=== PATIENT | male | born 1965 | race Two or more races ===

== ENCOUNTER 2020-11-04 13:19 | Outpatient (CLI) | payer BC, SELFPAY ==
--- NOTE | 2020-11-04 13:28 | XR_ITS ---
WS: [id number] PROCEDURE: XR chest 2V* [id number] CLINICAL INFORMATION: COVID 19, ASTHMATIC BRONCHITIS, DYSPNEA COMPARISON: None. FINDINGS: Heart: Normal cardiac silhouette. Lungs: Moderate to advanced chronic emphysematous changes. Patchy left greater than right perihilar a nd lower lobe infiltrates infiltrates. Recommend correlation for pneumonia. No focal consolidation or pleural fluid. Bones: Normal visualized bony structures. XR/XR chest 2V* [id number] IMPRESSION: 1. Patchy left greater than right perihilar and lower lobe infiltrates. 2. No focal consolidation or pleural fluid.
== END 2020-11-04 13:20 | disposition home or self-care (01) ==
LOC: RADWPI 13:26
PROVIDERS: PCP Nurse Practitioner Family; Visit Provider Nurse Practitioner Family
DX: U07.1 COVID-19 (principal); J45.909 Unspecified asthma, uncomplicated
CPT/HCPCS: 71046

== ENCOUNTER 2021-10-03 10:48 | Outpatient (CLI) | payer BC, SELFPAY ==
--- NOTE | 2021-10-03 11:18 | XR_ITS ---
WS: [id number] PROCEDURE: XR chest 2V* [id number] CLINICAL INFORMATION: COSTOCHONDRITIS COMPARISON: November 04, 2020 FINDINGS: Heart: Normal cardiac silhouette. Lungs: Lungs are clear. No consolidation or pleural fluid. No acute pulmonary infiltrates. Bones: Normal visualized bony structures. XR/XR chest 2V* [id number] IMPRESSION: No acute chest findings.
== END 2021-10-03 10:49 | disposition home or self-care (01) ==
PROVIDERS: PCP Nurse Practitioner Family; Visit Provider Nurse Practitioner Family
DX: M94.0 Chondrocostal junction syndrome [Tietze] (principal)
CPT/HCPCS: 71046

== ENCOUNTER 2023-03-28 06:30 | Observation (INO) | payer BC, SELFPAY ==
[2023-03-28] VITALS (22 sets, daily range): BP systolic 115–165; BP diastolic 66–101; PULSE 82–98; RESP 1–27; TEMP 36.6–36.7; O2SAT 93–97; BMI 28.0
--- NOTE | 2023-03-28 06:37 | XR_ITS ---
WS: [id number] Exam: XR chest 1V portable [id number] Date/Time of Exam: 03/28/2023 6:46 AM Reason For Exam: cp Comparison 10/03/2021. The lungs are fully inflated and clear. Mild plaque atelectasis in the left base. Normal cardiomedias tinal silhouette and regional bony elements. Monitoring leads superimpose the chest. XR/XR chest 1V portable [id number] IMPRESSION: 1. No acute cardiopulmonary finding.
--- NOTE | 2023-03-28 06:44 | ECG_ITS ---
[facility] Test Date: 2023-03-28 Pat Name: Prabhu Abdullahi Department: Room: Gender: Male Developer Automatic: : 1965 Requested By: Catrina Roche Order Number: [id number] Shea MD: Brown Mallory M.D. Measurements Intervals [place] Rate: 83 P: 177 NC: 171 QRS: 176 QRSD: 90 T: 164 QT: 319 QTc: 377 Interpretive Statements SINUS RHYTHM ARM LEADS REVERSED [INVERTED P AND QRS IN I] No previous ECG available for comparison Electronically Signed On 03-28-2023 17:37:02 CDT by Brown Mallory M.D. [id number]
[2023-03-28 07:02] LABS: Basophils # 0.1 10^3/uL (0.0-0.1); Basophils % 0.5 %; Eosinophils # 0.1 10^3/uL (0.0-0.8); Eosinophils % 0.5 %; Hematocrit 42.5 % (42.0-52.0); Hemoglobin 13.4 g/dL (11.7-16.6); Lymphocytes # 1.3 10^3/uL (0.8-4.8); Lymphocytes % 8.7 %; Mean Corpuscular HGB Conc 31.5 g/dL (30.0-36.0); Mean Corpuscular Hemoglobin 27.1 pg (28.0-34.0); Mean Platelet Volume 9.2 fL (7.4-10.4); Monocytes # 0.9 10^3/uL (0.2-0.9); Monocytes % 6.1 %; Neutrophils # 12.18 10^3/uL (1.8-7.7); Neutrophils % 83.9 %; Nucleated Red Blood Cells % 0 %; Platelet Count 340 10^3/cmm (130-400); Red Blood Count 4.94 10^6/uL (4.1-5.3); Red Cell Distribution Width 14.3 % (12.1-15.1); White Blood Count 14.5 10^3/uL (4.0-10.0)
--- NOTE | 2023-03-28 07:03 | ED_ITS ---
HPI - Chest Pain General: Chief Complaint: Chest Pain Stated Complaint: Chest Pressure, pain in Neck and left arm Time Seen by Provider: 03/28/23 06:37 Source: patient Mode of arrival: ambulatory Limitations: no limitations History of Present Illness: 57-year-old male states that he been on a train overnight working states that about 130 started having some left neck and arm pain he states started to radiate into his chest its been a pressure type pain in his chest since 130 states that couple hours later he started having some diaphoresis and feeling short of breath and lightheaded he states that they stopped [place] where he got the train started feel improved he states he feels much improved currently he still has some slight pressure type pain in the center of his chest he rates a 2 out of 10 currently. Associated symptoms: Reports dyspnea and nausea; Deny abdominal pain, fever(s) or vomiting Review of Systems Const: Denies: fever(s), chills, body aches or change in appetite Eyes: Denies: blurry vision or eye discomfort ENMT: Denies: throat pain or dental pain Card: Reports: chest pain Resp: Reports: dyspnea GI: Reports: nausea; Denies: abdominal pain, vomiting or diarrhea Musc: Denies: neck pain or back pain Skin/Breast: Denies: rash Neuro: Denies: headache(s) PFSH ED PFSH: Medical History (Updated 03/28/23 @ 08:26 by Catrina Roche MD) No pertinent past medical history Social History (Updated 03/28/23 @ 07:06 by Catrina Roche MD) Substance/Drug Use: never Physical Exam Const: COMMON NORMALS: patient oriented x3 HENMT: COMMON NORMALS: normocephalic and atraumatic HEAD & SCALP: normocephalic and atraumatic Eye: COMMON NORMALS: conjunctivae normal CONJUNCTIVA: Yes conjunctivae normal Neck/C-Spine: COMMON NORMALS: full ROM and supple Chest: COMMONS NORMALS: normal inspection of the chest and normal palpation of entire chest wall Resp: COMMON NORMALS: normal respiratory effort, No retractions, No use of accessory muscles and clear to auscultation bilaterally AUSCULTATION: clear to auscultation bilaterally Cardio: COMMON NORMALS: regular rate, regular rhythm and No murmurs present (Cardio) RATE: regular rate RHYTHM: regular rhythm GI: COMMON NORMALS: Normal to inspection, nondistended, normoactive bowel sounds present, Soft to palpation, non-tender and no masses PALPATION: Yes Soft to palpation Extremity: COMMON NORMALS: normal to inspection and full ROM Neuro: COMMON NORMALS: patient oriented x3, moves all extremities and no focal motor deficits Psych: COMMON NORMALS: mental status grossly normal, Normal thought process present and cooperative THOUGHT PROCESS: Normal thought process present Skin: COMMON NORMALS: no rashes or lesions noted and no wounds GENERAL SKIN EXAM: no rashes or lesions noted Course Vital Signs: Vital signs: Vital Signs Temperature 97.9 F 03/28/23 06:35 Pulse Rate 89 03/28/23 06:35 Respiratory Rate 16 03/28/23 06:35 Blood Pressure 165/94 03/28/23 06:54 Pulse Oximetry 97 03/28/23 06:56 Oxygen Delivery Me thod Room Air 03/28/23 06:56 MDM - Chest Pain Medical Decision Making Patient presents with chest pain started to have some diaphoresis and worsening pain here repeat EKGs were done at 816 819 1 at 816 started to show some upsloping look like repole but was quite changed from his initial repeat of the date 19 it is worse up to the peoplesoft hrms developer after both EKGs I did call a STEMI alert after the second EKG at 819. Patient is going to [place] Supervisor given Plavix and heparin. Medical Records I reviewed the patient's medical records. Lab Data I reviewed the patient's lab results. 03/28/23 06:51 03/28/23 06:51 Radiology Impressions Chest X-Ray 03/28/23 06:37 IMPRESSION: 1. No acute cardiopulmonary finding. Laboratory Results WBC 14.5 10^3/uL (4.0-10.0) H 03/28/23 06:51 RBC 4.94 10^6/uL (4.1-5.3) 03/28/23 06:51 Hgb 13.4 g/dL (11.7-16.6) 03/28/23 06:51 Hct 42.5 % (42.0-52.0) 03/28/23 06:51 MCV 86.0 fl (80-94) 03/28/23 06:51 MCH 27.1 pg (28.0-34.0) L 03/28/23 06:51 MCHC 31.5 g/dL (30.0-36.0) 03/28/23 06:51 RDW 14.3 % (12.1-15.1) 03/28/23 06:51 Plt Count 340 10^3/cmm (130-400) 03/28/23 06:51 MPV 9.2 fL (7.4-10.4) 03/28/23 06:51 Neut % (Auto) 83.9 % 03/28/23 06:51 Lymph % (Auto) 8.7 % 03/28/23 06:51 [place] % (Auto) 6.1 % 03/28/23 06:51 Eos % (Auto) 0.5 % 03/28/23 06:51 Baso % (Auto) 0.5 % 03/28/23 06:51 Neut # (Auto) 12.18 10^3/uL (1.8-7.7) H 03/28/23 06:51 Lymph # (Auto) 1.3 10^3/uL (0.8-4.8) 03/28/23 06:51 [place] # (Auto) 0.9 10^3/uL (0.2-0.9) 03/28/23 06:51 Eos # (Auto) 0.1 10^3/uL (0.0-0.8) 03/28/23 06:51 Baso # (Auto) 0.1 10^3/uL (0.0-0.1) 03/28/23 06:51 Nucleated RBC % (auto) 0 % 03/28/23 06:51 Nucleated RBCs # 0.0 /100WBC 03/28/23 06:51 D-Dimer 0.42 ug/mIFEU (0-0.59) 03/28/23 06:51 Sodium 135 mmol/L (136-145) L 03/28/23 06:51 Potassium 4.0 mmol/L (3.5-5.1) 03/28/23 06:51 Chloride 98 mmol/L (98-107) 03/28/23 06:51 Carbon Dioxide 26 mmol/L (22-29) 03/28/23 06:51 Anion Gap 15.0 (5-19) 03/28/23 06:51 BUN 10 mg/dL (6-20) 03/28/23 06:51 Creatinine 0.9 mg/dL (0.7-1.2) 03/28/23 06:51 GFR Calculation 87.0 mL/min (90-130) L 03/28/23 06:51 Glucose 111 mg/dL (65-115) 03/28/23 06:51 Calculated Osmolality 280 mOsm/kg (285-295) L 03/28/23 06:51 Calcium 9.8 mg/dL (8.5-10.5) 03/28/23 06:51 Total Bilirubin 0.4 mg/dL (0.15-1.2) 03/28/23 06:51 AST 14 U/L (0-40) 03/28/23 06:51 ALT 18 U/L (0-41) 03/28/23 06:51 Alkaline Phosphatase 110 U/L (40-130) 03/28/23 06:51 Troponin T Baseline 7 ng/L (0-15) 03/28/23 06:51 Total Protein 7.5 g/dL (6.6-8.7) 03/28/23 06:51 Albumin 4.2 g/dL (3.5-5.2) 03/28/23 06:51 Globulin 3.3 g/dL (1.3-4.6) 03/28/23 06:51 EKG Data EKG 1: I personally reviewed and interpreted this EKG as follows: EKG interpretation date: 03/28/23 EKG interpretation time: 06:44 Interpretation: nsr hr [address] or t wave abnormalities qrs 90 qtc 359 Critical Care Time Critical Care Time: Critical Care Time: Yes Total Critical Care Time: 40 Attestation: The high probability of a clinically significant, sudden or life threatening deterioration of the patient's cv system(s) required my full and direct attention, intervention and personal management. The critical care time is as shown. This time is in addition to time spent performing any reported procedures but includes the following: [x] Data and vital sign review and interpretation [x] Patient assessment, examination and intervention [x] Documentation [x] Medication orders and management Discharge Plan Discharge Patient Disposition: Admitted As Inpatient Clinical Impression: ST elevation myocardial infarction (STEMI) Condition: Stable Coding Level of Care Code ED Strategic Planning Specialist for Elizabeth Marino
--- NOTE | 2023-03-28 07:05 | PC.NURSE ---
PT PLACED ON CONTINUOUS NIBP, SPO2, AND CM
[2023-03-28 07:16] LABS: D Dimer 0.42 ug/mIFEU (0-0.59)
[2023-03-28 07:19] LABS: Alanine Aminotransferase 18 U/L (0-41); Albumin Level 4.2 g/dL (3.5-5.2); Alkaline Phosphatase 110 U/L (40-130); Aspartate Amino Transferase 14 U/L (0-40); Blood Urea Nitrogen 10 mg/dL (6-20); Calcium 9.8 mg/dL (8.5-10.5); Carbon Dioxide 26 mmol/L (22-29); Chloride 98 mmol/L (98-107); Globulin 3.3 g/dL (1.3-4.6); Glucose 111 mg/dL (65-115); Osmolality Calculated 280 mOsm/kg (285-295); Sodium 135 mmol/L (136-145); Total Bilirubin 0.4 mg/dL (0.15-1.2); Total Protein 7.5 g/dL (6.6-8.7)
[2023-03-28 07:20] LABS: Troponin(5th) Baseline 7 ng/L (0-15)
[2023-03-28] MEDS: aspirin 81 mg Chew Tablet 324 MG PO (07:54)
--- NOTE | 2023-03-28 08:26 | XACV_ITS ---
Exam Room: ED.ROOM12 Ht: 175 cm Wt: 86 kg BSA: 2.07 m2 Gender: Male : 1965 Any Known Allergies: Penicillins Exam Priority: Routine Procedure(s): Procedure Description: Diagnostic procedure Procedure Description: Left Heart Catheterization Procedure Description: Left ventriculography Procedure Description: Coronary Angiography Diagnostic Cath Status: Emergency Diagnostic Findings * INDICATION: 57 year old male with no significant prior history of CAD history presented to hospital with chest discomfort since last night and it is on and off.It is severe. EKG shows ST elevations that are more diffuse however are dynamic. Patient also has diaphoresis associated with it.Initial troponin is normal. STEMI alert was called as EKG changes are dynamic.. * No significant disease noted in the Left Main, Left Anterior Descending, Right, or Circumflex coronary arteries. * Coronary angiography shows right dominance. PCI Status: Emergency Conclusions 1. No significant disease noted in the Left Main, Left Anterior Descending, Right, or Circumflex coronary arteries. 2. Symptoms likely secondary to coronary vasospasms. 3. Normal left ventricular systolic function. Ejection fraction of 55%. Recommendations * Patient's symptoms are likely secondary to coronary vasospasm. We will start calcium channel piedad. * We will have work-up for alternative reasons for chest discomfort. Interventional RX Recommendation: medical therapy and/or counseling Diagnostic RX Recommendation: medical therapy and/or counseling Anticoagulation: Heparin Ventriculography Ejection Fraction: 55.0 % Pressures Phase:Rest AO : 130 / 97 ( 113 ) @ 9:47:00 AM 120 / 92 ( 107 ) @ 9:54:00 AM 133 / 82 ( 106 ) @ 10:04:00 AM 115 / 83 ( 100 ) @ 10:05:00 AM / ( 9 ) @ 10:10:00 AM 137 / 77 ( 102 ) @ 10:13:00 AM 134 / 76 ( 100 ) @ 10:14:00 AM LV : 142 / -5 / 23 @ 10:12:00 AM 141 / 5 / 27 @ 10:13:00 AM 142 / 5 / 27 @ 10:13:00 AM Valves Phase:DefaultPhase AV : 5.0 @ 9:28:35 AM 5.0 @ 9:28:35 AM AV Mean Gradient: 17.0 @ 9:28:35 AM 17.0 @ 9:28:35 AM Clinical Evaluation EBL: 5mL-10mL Procedural Details Pre-Procedure Time Out. Identified patient by full name and date of as verbalized by the patient/guarantor. Does the consent match the physician's order: N/A Emergent. Accurate & Complete Informed Consent: N/A Emergent. Inpatient/Outpatient History & Physical on Chart: N/A Emergent. If H&P is completed, is and addenduem needed: N/A Emergent; If yes, is the addendum complete: N/A Emergent. Visualize and Verify Site with Patient/Guarantor: N/A. Relevant Radiology Images available: N/A Emergent. Pre-op teaching completed and patient verbalized understanding. The risks, benefits, and alternatives of sedation and/or procedure were discussed by physician. The patient agrees to continue. Procedure started. Current diagnosis: STEMI. PERRLA. Strong, equal hand industry consultant bilaterally. Lungs clear x 5 lobes. IV Site on Arrival: 20 gauge in the right anticubital. IV Site on Arrival: 20 gauge in the left anticubital. IV Fluids: 0.9% NaCl at KVO. 0 mL infused prior to lab support service tech. Pre Procedural Pulses: bilateral radial was 2+. Pre Procedural Pulses: bilateral dorsalis pedis was 2+. Oxygen started at 2liters/min via nasal canula. right groin was prepped with chloroprep then draped in the usual sterile fashion. right radial was prepped with chloroprep then draped in the usual sterile fashion. Physician notified. Baseline sample Acquired. HR: 98 BPM. Physician arrived. Physician scrubbed in. Immediate Pre-Procedure Time Out. Correct Patient: N/A Emergent; Correct Procedure: N/A Emergent; Correct Site: N/A Emergent; Correct Patient Position: N/A Emergent; Correct Supplies: N/A Emergent; Dried Flammable Prep: N/A Emergent; Blood Products Available: N/A Emergent;. Lidocaine 1% infiltrated to the right radial. Arterial access obtained. A 6 bangladeshi TIG catheter in over wire. Catheter out. A 5 bangladeshi JR4 catheter in over wire. Multiple views taken of right coronary artery. Catheter removed over the exchange wire. A 5 bangladeshi JL3.5 catheter in over wire. Multiple views taken of left coronary artery. 6 bangladeshi XB 3.5 guide catheter was inserted over the wire. Family updated. Guide catheter out. Lidocaine 1% infiltrated to the right groin. Arterial access obtained with micropuncture set. 6 bangladeshi XB 3.5 guide catheter was inserted over the wire. Multiple views taken of left coronary artery. Guide catheter out. A 5 bangladeshi JR4 catheter in over wire. Multiple views taken of right coronary artery. Catheter out. A 5 bangladeshi Angled Pig catheter in over wire. EDP Sample taken: LV 142/-6,23; HR: 90 BPM; SpO2: 98%. LV gram performed in JURADO @ 10 mL/second for a total of 30 mL. EDP Sample taken: LV 141/5,27; HR: 90 BPM; SpO2: 95%. Pullback taken: LV 142/5,27; AO 137/77(102); Mean: 17mmHg, Peak to Peak: 5mmHg, SEP: 10sec/min; HR: 90 BPM; SpO2: 99%. A Right femoral angiogram was performed to determine safe placement of closure device. Post Procedure: Pulses reassessed and unchanged. PERRLA. Strong, equal hand industry consultant bilaterally. No VTE prophylaxis required. A Suture was successful obtaining hemostatsis at the Right Femoral artery insertion site. A TR Band was successful obtaining hemostatsis at the Right Radial artery insertion site. ACT drawn. Results 192 seconds. Therapeutic limits - pre-heparin administration 90-150 seconds and monitoring heparin during a vascular procedure >250 seconds. Post-op diagnosis: non obstructive CAD. Complications: none. Estimated blood loss: 5mL-10mL. Responsiveness - Normal response to verbal stimuli; alert and oriented, PERRLA. Airway - Unaffected, no intervention required; spontaneous ventilation. Circulation: W/N/L, pulses unchanged. Nausea/Vomiting: No. Medication's Wasted: Nitro = 49.8 mL. Medication's Wasted: Heparin = 4000 units. Total IV fluids: 45 mL. Procedure completed. Patient transferred by bed to ICU. Vital chart was stopped. Access Site Site: Right Radial artery Sheath Size: 6 Fr Hemostasis Method: TR Band Hemostasis Success: Successful Site: Right Femoral artery Sheath Size: 6 Fr Hemostasis Method: Suture Hemostasis Success: Successful Procedure Medications Start: 8:44 AM Stop: 8:44 AM Medication: Versed Amount: 1 mg Route: I.V. Start: 8:44 AM Stop: 8:44 AM Medication: Fentanyl Amount: 50 mcg Route: I.V. Start: 8:44 AM Stop: 8:44 AM Medication: Versed Amount: 1 mg Route: I.V. Start: 8:45 AM Stop: 8:45 AM Medication: Nitrogylcerin Amount: 200 mcg Route: I.A. Start: 8:52 AM Stop: 8:52 AM Medication: Versed Amount: 1 mg Route: I.V. Start: 8:57 AM Stop: 8:57 AM Medication: Fentanyl Amount: 50 mcg Route: I.V. Start: 9:03 AM Stop: 9:03 AM Medication: Versed Amount: 1 mg Route: I.V. I, the attending physician, have reviewed and verified all procedure medications. Yes, all medications given per verbal order Report Signatures Finalized by Brown Mallory MD on 04/07/2023 11:46 AM
[2023-03-28] MEDS: heparin 5,000 unit/mL INJ 1 mL 4000 UNIT IVP (08:29)
[2023-03-28] MEDS: clopidogrel 300 mg Tablet 600 MG PO (08:29)
[2023-03-28] MEDS: sodium chloride 0.9% 1,000 ML 999 ML IV (08:36)
--- NOTE | 2023-03-28 08:36 | PC.NURSE ---
PT BECAME COOL AND CLAMMY. PT STATED HE WAS NAUSEAS AND DID NOT FEEL RIGHT. SECOND EKG OBTAINED AND GIVEN TO PHYSICIAN. STEMI ALERT CALLED.
--- NOTE | 2023-03-28 09:45 | PM.HP ---
Providers/Chief Complaint Admitting Physician: Brown Malolry M.D Primary Care Provider: Tasha Rowe APN Chief Complaint: Chest Pressure, pain in Neck and left arm History of Present Illness Prabhu Abdullahi is a 57 year old male with no significant prior history of CAD history presented to hospital with chest discomfort since last night and it is on and off.It is severe. EKG shows ST elevations that are more diffuse however are dynamic. Patient also has diaphoresis associated with it.Initial troponin is normal. STEMI alert was called as EKG changes are dynamic. Review of Systems General: Reports: 10 or more systems reviewed and unremarkable except in HPI and below Const: Reports: chills and diaphoresis; Denies: fever(s) Card: Reports: chest pain Resp: Denies: dyspnea GI: Reports: nausea; Denies: abdominal pain, hematemesis, hematochezia or melena Medications/Allergies Home Medications Medication Instructions Recorded Confirmed Last Taken Type aspirin 81 mg tablet,delayed 81 mg PO DAILY 03/28/23 03/28/23 Unknown History release cholecalciferol (vitamin D3) 25 25 mcg PO DAILY 03/28/23 03/28/23 Unknown History mcg (1,000 unit) capsule (Vitamin D3) esomeprazole magnesium 20 mg 20 mg PO DAILY 03/28/23 03/28/23 Unknown History capsule,delayed release (Nexium) loratadine 10 mg capsule 10 mg PO DAILY 03/28/23 03/28/23 Unknown History multivitamin 1 tab PO DAILY 03/28/23 03/28/23 Unknown History Allergies Allergy/AdvReac Type Severity Reaction Status Date / Time Penicillins Allergy Unknown Verified 03/28/23 06:41 PFSH Acute PFSH: Medical History GERD (gastroesophageal reflux disease) No pertinent past medical history Family History Other CAD (coronary artery disease) Social History Smoking and tobacco status: never smoked Alcohol intake: never Substance/Drug Use: never Vitals/I&O/Wt Last Vital Signs Temp 97.9 F 03/28/23 06:35 Pulse 82 03/28/23 08:00 Resp 20 H 03/28/23 08:00 BP 121/74 03/28/23 08:00 Pulse Ox 95 03/28/23 08:00 O2 Del Method Room Air 03/28/23 07:30 Weight last 48 hrs Weight 190 lb Physical Exam Narrative: GENERAL: Patient is alert, awake and oriented x3. [] NECK: No jugular vein distension. [] HEENT: No cyanosis. No icterus. No pallor. [] HEART: Regular S1 and S2. No murmur, rub or gallop. [] LUNGS: Clear to auscultate bilaterally. [] CENTRAL NERVOUS SYSTEM: Grossly nonfocal. [] EXTREMITIES: Lower extremities with 1+ edema bilaterally. Data 03/28/23 06:51 03/28/23 06:51 A&P Assessment and plan (1) Chest pain: Plan Patient has diffuse ST elevations. Chest pain is severe and typical. Associated with diaphoresis. Denies pleuritic component.We will proceed with coronary angiogram with possible percutaneous coronary intervention. We will order echocardiogram. If coronary angiogram does not reveal significant disease, will consult medicine team for alternative diagnosis evaluation. Attestations Medical Necessity Statement*: Care expected to cross 2 midnights. Coding Level of Care Code Acute Code for [facility] Diagnoses Chest pain R07.9
--- NOTE | 2023-03-28 09:50 | USCV_ITS ---
Prabhu Abdullahi Age: 57 Gender: M : 1965 Exam Date: 03/28/2023 10:16 Ordering Phys: Brown Mallory M.D ([email or web address]) Technologist: Morris Flynn Exam Location: [facility] [place] Indication: chest pain post cath BP: 131 / 84 HR: 92 Rhythm: Sinus Technical Quality: Adequate MEASUREMENTS (Male / Female) Normal Values 2D ECHO LV Diastolic Diameter PLAX 3.9 cm 4.2 - 5.9 / 3.9 - 5.3 cm LV Systolic Diameter PLAX 2.2 cm IVS Diastolic Thickness 1.4 cm 0.6 - 1.0 / 0.6 - 0.9 cm IVS Systolic Thickness 1.3 cm LVPW Diastolic Thickness 1.3 cm 0.6 - 1.0 / 0.6 - 0.9 cm LVPW Systolic Thickness 1.3 cm LVOT Diameter 2.0 cm LV Ejection Fraction 2D Teich 74.3 % LV Ejection Fraction MOD 2C 68.8 % LV Ejection Fraction 2C AL 68.3 % LA Diameter 3.6 cm IVC Diameter 2.0 cm M-MODE Aortic Annulus Diameter 3.7 cm LA Ao Ratio MM 1.0 MV E Point Septal Separation 0.5 cm DOPPLER AV Peak Velocity 139.0 cm/s LVOT Peak Velocity 102.0 cm/s AV Area Cont Eq vti 2.1 cm squared AV Area Cont Eq pk 2.3 cm squared MV Area PHT 5.0 cm squared Mitral E to A Ratio 1.2 MV E' Velocity 53.5 cm/s Mitral E to MV E' Ratio 8.5 Mitral E to LV E' Lateral Ratio 7.4 Mitral E to LV E' Septal Ratio 10.0 TR Peak Velocity 150.3 cm/s TR Peak Gradient 9.0 mmHg TV Peak E Velocity 93.0 cm/s Right Atrial Pressure 3.0 mmHg Pulmonary Artery Systolic Pressu 12.0 mmHg RV Acceleration Time 0.1 s FINDINGS Left Ventricle Left ventricle is normal size. LV systolic function is normal with EF of 60 to 65%. No regional wall motion abnormalities are seen. Right Ventricle Normal in size and function Right Atrium Normal in size Left Atrium Normal in size Mitral Valve Structurally normal mitral valve. Mild mitral regurgitation. Aortic Valve Aortic valve is thickened. No significant stenosis or regurgitation. Tricuspid Valve Mild tricuspid regurgitation. Insufficient TR jet to calculate RVSP Pulmonic Valve Not well visualized Pericardium Normal Aorta Normal in size IVC Appears to be normal CONCLUSIONS LV systolic function is normal with EF of 60 to 65% Mild mitral regurgitation Mild tricuspid regurgitation No comparison studies are available Brown Mallory MD (Electronically Signed) Final Date: 28 March 2023 18:53 S
[2023-03-28] MEDS: amlodipine 5 mg Tablet 2.5 MG PO (10:15)
[2023-03-28 12:25] LABS: Partial Thromboplastin Time 31.1 SECONDS (23.9-36.7)
--- NOTE | 2023-03-28 13:13 | ECG_ITS ---
[facility] Test Date: 2023-03-28 Pat Name: Prabhu Abdullahi Department: Room: ICU07 Gender: Male Airport Representative: : 1965 Requested By: Catrina Roche Order Number: [id number] Shea MD: Brown Mallory M.D. Measurements Intervals [place] Rate: 92 P: 51 MS: 155 QRS: 38 QRSD: 95 T: 49 QT: 316 QTc: 391 Interpretive Statements SINUS RHYTHM ST ELEVATION, CONSIDER INFERIOR INJURY [MARKED ST ELEVATION W/O NORMALLY INFLECTED T-WAVE IN II/aVF] ACUTE TX Compared to ECG 03/28/2023 06:44:54 ST (T wave) deviation now present Myocardial infarct finding now present Electronically Signed On 03-28-2023 17:37:53 CDT by Brown Mallory M.D. [id number]
--- NOTE | 2023-03-28 13:18 | P.CONIM_ITS ---
Providers/Reason For Consult Consulting Physician/Specialty*: David Michele MD Reason for Consult*: Chest pain, diaphoresis Attending Physician: Brown Mallory M.D Primary Care Provider: Tasha Rowe APN History of Present Illness History of Present Illness Prabhu Abdullahi is a 57 year old male with history of GERD who presented to the ED with complaints of chest pressure starting in very early AM hours while at work. This seemed to wax and waing. It was associated with severe diaphoresis, radiation of pain into neck and shoulder. Some significant nausea. No recent illness, blood in stool, black or tarry stools. Does take meds for reflux. No recent ill contacts or illness. Feels like discomfort worsens some with taking a breath, coughing. Has had some diaphoresis at night in the last several months. STEMI was called in ED, underwent angiogram and no significant disease was noted. Following procedure he is better, but still having some episodes of diap horesis and discomfort. Review of Systems General: Reports: 10 or more systems reviewed and unremarkable except in HPI and below Const: Reports: chills and diaphoresis; Denies: fever(s) Card: Reports: chest pain Resp: Denies: dyspnea GI: Reports: nausea; Denies: abdominal pain, hematemesis, hematochezia or melena Medications/Allergies Home Medications Medication Instructions Recorded Confirmed Last Taken Type aspirin 81 mg tablet,delayed 81 mg PO DAILY 03/28/23 03/28/23 Unknown History release cholecalciferol (vitamin D3) 25 25 mcg PO DAILY 03/28/23 03/28/23 Unknown History mcg (1,000 unit) capsule (Vitamin D3) esomeprazole magnesium 20 mg 20 mg PO DAILY 03/28/23 03/28/23 Unknown History capsule,delayed release (Nexium) loratadine 10 mg capsule 10 mg PO DAILY 03/28/23 03/28/23 Unknown History multivitamin 1 tab PO DAILY 03/28/23 03/28/23 Unknown History Allergies Allergy/AdvReac Type Severity Reaction Status Date / Time Penicillins Allergy Unknown Verified 03/28/23 06:41 Current Medications Generic Name Dose Route Start Last Admin Trade Name Freq PRN Reason Stop Dose Admin Amlodipine Besylate 2.5 mg 03/28/23 09:55 03/28/23 10:15 Amlodipine 5 Mg Tablet PO 2.5 mg DAILY JAZ Administration Sodium Chloride 1,000 mls @ 100 mls/hr 03/28/23 10:00 03/28/23 10:15 Sodium Chloride 0.9% IV Not Given .Q10H JAZ PFSH Acute PFSH: Medical History (Updated 03/28/23 @ 13:23 by David Michele MD) GERD (gastroesophageal reflux disease) No pertinent past medical history Family History (Updated 03/28/23 @ 13:22 by David Michele MD) Other CAD (coronary artery disease) Social History (Updated 03/28/23 @ 13:22 by David Michele MD) Smoking and tobacco status: never smoked Alcohol intake: never Substance/Drug Use: never Vitals/I&O/Wt Last Vital Signs Temp 97.9 F 03/28/23 06:35 Pulse 95 03/28/23 10:15 Resp 19 H 03/28/23 10:15 BP 137/101 03/28/23 10:15 Pulse Ox 94 03/28/23 10:15 O2 Del Method Room Air 03/28/23 10:01 03/27/23 03/28/23 03/28/23 22:59 06:59 14:59 Intake Total 1000 / 1000 Balance 1000 / 1000 Weight last 48 hrs Weight 86.183 kg Physical Exam Narrative: General exam is a white male, no distress HEENT: Atraumatic and normocephalic. Pupils equally round. Neck is supple no lymphadenopathy thyromegaly Cardiovascular regular rate and rhythm without murmur, no S3 or S4 Lungs clear no wheezing or crackles Abdomen is soft nontender with positive bowel sounds. No obvious organomegaly exams deferred Extremities no cyanosis, edema, cap refill brisk Skin no rash Neuro no focal deficits Data 03/28/23 06:51 03/28/23 06:51 Other Labs: EKGs reviewed. Last one demonstrates normal sinus rhythm, normal axis, upsloping ST elevation inferiorly and V4 through 6 by my read D-dimer is normal Calcium 9.8 LFTs normal TSH ordered and pending Albumin 4.2 Chest x-ray no obvious infiltrate by my read I have ordered a urinalysis. A&P Assessment and plan (1) Chest pain: Patient presented with recurrence earning history for myocardial infarction. EKG was abnormal and he was taken directly to angiogram, where no flow-limiting disease was noted. He is still having significant discomfort, and periods of diaphoresis. Echocardiogram has been done but results pending Secondary to his persistent diaphoresis, that is intermittent as well as chest discomfort which she describes to have a pleuritic quality we will go ahead and perform CT chest, with contrast. We will also check a TSH, COVID PCR which will also encompass a viral panel He does have a history of reflux, and cannot completely rule out esophageal spasm as a reason for his discomfort. Placed on Protonix twice daily. Check urinalysis Plan Thank you for this consultation Consult Attestations Medical Necessity Statement: As per primary Diagnoses Chest pain R07.9 Time Spent (min) 53
--- NOTE | 2023-03-28 13:25 | CT_ITS ---
WS: [id number] CT CHEST ANGIOGRAPHY WITH REFORMATS HISTORY: chest pain TECHNIQUE: Contiguous axial images are obtained through the chest during arterial injection of intrav enous contrast. Images are reconstructed to evaluate the pulmonary arteries. MIP imaging also reviewe d. All CT scans at [facility] use at least one of these dose optimization techniques: automat ed exposure control; mA and/or kV adjustment per patient size (includes targeted exams where dose is matched to clinical indication); or iterative reconstruction. CONTRAST: Omnipaque 350; 100 mL IV. DLP: 365.15 mGy.cm COMPARISON: None available. Limited opacification of the pulmonary arteries due to timing of injection bolus. Centrally no pulmon emiliano embolism. Limited opacification beyond the lobar branches. No occlusive central emboli identified . Normal-sized thoracic aorta with mild atherosclerotic plaque. Motion artifact throughout the lungs. Lung volumes are decreased due to expiration. Compressive areas of atelectasis at the lung bases. 14 mm RIGHT hilar lymph node. Blush-like area of enhancement along the greater curvature the stomach may be a tiny active ulceration with bleeding. Differential would include medicinal fragment within t he stomach. Soft tissue mass in the LEFT upper abdomen is most likely associated with the kidney. The normal emperatriz form shape is no longer evident. This soft tissue mass measures 7.6 x 9.0 cm. Spleen appears slightly enlarged. Neither the spleen of the kidney are completely included on this examination. Mild fullnes s of the pancreatic tail. Visualized upper pole of the RIGHT kidney is negative. Normal RIGHT adrenal gland. Thickening of the LEFT adrenal gland. No osseous abnormalities. IMPRESSION: 1. No pulmonary embolism centrally. 2. Low lung volumes and poor inspiration with dependent changes at the lung bases. 3. Soft tissue mass visualized in the LEFT upper abdomen. Incomplete visualization of this mass harvinder uring 7.6 x 9.0 cm. Favor this is probably an abnormal LEFT kidney. Differential includes renal cell neoplasm and lymphoma. 4. Incompletely visualized spleen. Spleen is probably slightly enlarged. Additional fullness at the pancreatic tail and mild thickening of the LEFT adrenal gland. 5. Recommendation: CT abdomen and pelvis with IV and oral contrast is recommended. As patient recent ly had IV contrast with CT angiogram recommend waiting 24 hours. Notified David Michele MD at 03/28/2023 3:22 PM.
[2023-03-28] MEDS: pantoprazole DR 40 mg Tablet PO ×2 (14:13→17:54)
[2023-03-28 14:14] LABS: Magnesium 2.2 mg/dL (1.7-2.3); Thyroid Stimulating Hormone 2.05 uIU/mL (0.27-4.20)
[2023-03-28] MEDS: iohexol 350 mg/mL 500 mL Btl (per mL) IV (15:02)
[2023-03-28 17:35] LABS: Protein Urine 1+ (Negative); Specific Gravity, Urine 1.005 (1.005-1.030); Urine Color Yellow (Yellow); pH Urine 7 (5-7)
[2023-03-28 17:36] LABS: Bacteria Urine TR /hpf; Bilirubin Urine Neg (Negative); Blood Urine 3+ (Negative); Glucose Urine UA Norm (Normal); Ketones Urine Negative (Negative); Leukocyte Esterase Urine Negative (Negative); Nitrate Urine Negative (Negative); RBC Urine >100 /hpf (0-2); Urobilinogen Urine Norm (Negative)
[2023-03-28 17:38] LABS: Add Urine Culture? Yes
[2023-03-28 19:00] LABS: Adenovirus Not Detected (NOT DETECT); Chlamydia Pneumoniae Not Detected (NOT DETECT); Coronavirus 229E,HKU1,NL63,OC4 Not Detected (NOT DETECT); Human Metapneumovirus Not Detected (NOT DETECT); Human Rhinovirus/Enterovirus Not Detected (NOT DETECT); Influenza A Not Detected (NOT DETECT); Influenza A H1 Not Detected (NOT DETECT); Influenza A H1-2009 Not Detected (NOT DETECT); Influenza A H3 Not Detected (NOT DETECT); Influenza B Not Detected (NOT DETECT); Mycoplasma Pneumoniae Not Detected (NOT DETECT); Parainfluenza Virus Type 1 Not Detected (NOT DETECT); Parainfluenza Virus Type 2 Not Detected (NOT DETECT); Parainfluenza Virus Type 3 Not Detected (NOT DETECT); Parainfluenza Virus Type 4 Not Detected (NOT DETECT); Respiratory Syncytial Virus A Not Detected (NOT DETECT); Respiratory Syncytial Virus B Not Detected (NOT DETECT); SARS-COV-2 Not Detected (NOT DETECT)
[2023-03-28] MEDS: sodium chloride 0.9% 1,000 ML 125 ML IV (19:29)
[2023-03-28 19:36] LABS: Squamous Epithelial Cell Urine 0-4 /hpf (0-5)
[2023-03-29] VITALS (9 sets, daily range): BP systolic 121–139; BP diastolic 68–79; PULSE 80–95; RESP 1–30; O2SAT 93–97
[2023-03-29] MEDS: sodium chloride 0.9% 1,000 ML 125 ML IV (03:09)
[2023-03-29 04:13] LABS: Basophils % 0.2 %; Eosinophils # 0.1 10^3/uL (0.0-0.8); Eosinophils % 0.7 %; Hematocrit 37.9 % (42.0-52.0); Hemoglobin 12.1 g/dL (11.7-16.6); Lymphocytes # 1.4 10^3/uL (0.8-4.8); Lymphocytes % 13.7 %; Mean Corpuscular HGB Conc 31.9 g/dL (30.0-36.0); Mean Corpuscular Hemoglobin 27.9 pg (28.0-34.0); Mean Corpuscular Volume 87.5 fl (80-94); Mean Platelet Volume 9.3 fL (7.4-10.4); Monocytes # 0.8 10^3/uL (0.2-0.9); Monocytes % 8.1 %; Neutrophils # 7.57 10^3/uL (1.8-7.7); Neutrophils % 77.1 %; Nucleated Red Blood Cells % 0 %; Platelet Count 282 10^3/cmm (130-400); Red Blood Count 4.33 10^6/uL (4.1-5.3); Red Cell Distribution Width 14.8 % (12.1-15.1); White Blood Count 9.8 10^3/uL (4.0-10.0)
[2023-03-29 04:36] LABS: Anion Gap 14.2 (5-19); Blood Urea Nitrogen 9 mg/dL (6-20); Calcium 8.6 mg/dL (8.5-10.5); Carbon Dioxide 25 mmol/L (22-29); Chloride 102 mmol/L (98-107); Glucose 121 mg/dL (65-115); Osmolality Calculated 284 mOsm/kg (285-295); Potassium 4.2 mmol/L (3.5-5.1); Sodium 137 mmol/L (136-145)
--- NOTE | 2023-03-29 07:23 | CTR_ITS ---
PROCEDURE INFORMATION: Exam: CT Abdomen And Pelvis With Contrast Exam date and time: 03/29/2023 8:33 AM Age: 57 years old Clinical indication: Abnormal findings; Mass, lump, or swelling; Kidney, left; Additional info: Mass seen on cta TECHNIQUE: Imaging protocol: Computed tomography of the abdomen and pelvis with contrast. 223image(s) are provided. Radiation optimization: All CT scans at this facility use at least one of these dose optimization techniques: automated exposure control; mA and/or kV adjustment per patient size (includes targeted exams where dose is matched to clinical indication); or iterative reconstruction. Contrast material: OMNI 350; Contrast volume: 100 ml; Contrast route: INTRAVENOUS (IV); Other technique: Axial images are available with sagittal and coronal reconstruction views. Automated dose exposure control is utilized. REPORTING DATA: Count of CT and Cardiac NM exams in prior 12 months: This patient has received [address] and 0 known cardiac nuclear medicine studies in the 12 months prior to the current study. COMPARISON: CT angio chest PE protcl [id number] 03/28/2023 2:[address] abdomen is currently available. RADIATION DOSE METRICS: Total DLP (mGy-cm): 890.52 FINDINGS: Lungs: Lung base findings correlate with the CT chest description. Liver: There appears to be some slight hepatic steatosis as well as some subcentimeter cystic appearance of the left liver lobe similar overall. Gallbladder and bile ducts: There is increased density of the gallbladder which could be seen with some sludge as well as vicarious excretion of contrast along with some small stone filling defects of the dependent portion. Pancreas: No pancreatic ductal dilatation or stranding is currently appreciated. Spleen: There is a small splenule present. Adrenal glands: There appears to be some adrenal involvement on the left medially. Kidneys and ureters: No radiopaque obstructive renal calculus or hydronephrosis is appreciated with relatively homogeneous enhancement appearance on the right. There is some subcentimeter fluid dense cystic as well as possible angiomyolipoma type averaging. There is however complex and lobulated mass of the left renal superior pole which measures approximately 9.1 x 8.5 x 8.4 cm. Stomach and bowel: Some aspects of the colon are undistended. This may also be peristaltic related.There is abundant stool present limiting mucosal detail evaluation.The bowel gas pattern appears nonobstructive. There is a small sliding-type hiatal hernia demonstrated with slight gastroesophageal fold thickening. Appendix: No evidence of appendicitis. Intraperitoneal space: No free air or free fluid collections are appreciated. Vasculature: There are some atherosclerotic vascular calcifications with no aortic saccular aneurysmal dilatation appreciated. Branch vessel enhancement is overall appreciated including at the expected renal arterial and venous levels centrally. There are enlarged lymph nodes present appearing most pronounced at the left para-aortic space measuring approximately 4.9 x 2.1 cm. Lymph nodes: There also borderline lymph nodes along the perivascular space including the groin levels right more so than left as well as stranding. Urinary bladder: The bladder is incompletely fluid filled for evaluation which may exagerate the wall thickness. This can also be seen with post inflammation sequela. Reproductive: There appears to be some lobulated prostate hypertrophy. Bones/joints: Osseous alignment is maintained.No displaced fracture or dislocation is appreciated. There is some mild spurring and disc space narrowing of the lumbar spine including at the lumbosacral junction. This contributes to some neural foraminal narrowing. Soft tissues: No radiopaque foreign body or subcutaneous emphysema is appreciated. Other findings: There is some motion artifact present. No other significant interval changes are appreciated. CT/CT abdomen pelvis w con* [id number] IMPRESSION: There is heterogeneous and lobulated left renal mass with the appearance consistent with renal cell neoplasm. There are associated enlarged lymph nodes including of the left para-aortic space and likely involvement of the adrenal gland on the left. There is overall renal arterial and venous contrast luminal enhancement demonstrated. Some small-vessel proximal renal level involvement could also present in this fashion as there is some central extension as well as of the renal pelvis calyceal junction.
[2023-03-29] MEDS: pantoprazole DR 40 mg Tablet PO (08:02)
[2023-03-29] MEDS: aspirin 81 mg EC Tablet PO (08:02)
[2023-03-29] MEDS: amlodipine 5 mg Tablet 2.5 MG PO (08:02)
[2023-03-29] MEDS: multivitamin therapeutic Tablet 1 TAB PO (08:02)
[2023-03-29] MEDS: iohexol 350 mg/mL 500 mL Btl (per mL) IV (08:38)
[2023-03-29] MEDS: iohexol 350 mg/mL 500 mL Btl (per mL) PO (08:39)
--- NOTE | 2023-03-29 08:46 | P.PN_ITS ---
Subjective Subjective: Prabhu reports he is feeling okay today. No recurrent chest discomfort. No flushing episodes. Eager for evaluation of his abdominal mass on the left. He has been up and around. Medications: Reviewed: Yes Vitals/I&O/Wt Last Vital Signs Temp 98.0 F 03/28/23 16:18 Pulse 80 03/29/23 06:00 Resp 18 03/29/23 06:00 BP 126/68 03/29/23 06:00 Pulse Ox 97 03/29/23 06:00 O2 Del Method Room Air 03/28/23 10:01 03/28/23 03/29/23 03/29/23 22:59 06:59 14:59 Intake Total 240 / 1240 958.333 / 2198.333 Balance 240 / 1240 958.333 / 2198.333 Weight last 48 hrs Weight 86.183 kg Physical Exam Narrative: General exam no distress, telemetry overnight no concerns Neck is supple no lymphadenopathy thyromegaly Cardiovascular regular rate and rhythm without murmur, no S3 or S4 Lungs clear no wheezing or crackles Abdomen is soft nontender with positive bowel sounds. No obvious organomegaly Extremities no cyanosis, edema, cap refill brisk Data 03/29/23 03:41 03/29/23 03:41 Other Labs: Urine demonstrated microscopic hematuria A&P Assessment and plan (1) Chest pain: Patient presented with recurrence earning history for myocardial infarction. EKG was abnormal and he was taken directly to angiogram, where no flow-limiting disease was noted. His episodes of chest discomfort and diaphoresis did not recur overnight Echocardiogram shows preserved EF CTA of chest done after angiogram secondary to some persistent discomfort dem onstrated a left abdominal mass. CT abdomen and pelvis planned today. TSH normal, COVID PCR negative He does have a history of reflux, and cannot completely rule out esophageal spasm as a reason for his discomfort. Placed on Protonix twice daily. He reports this is helping with his reflux (2) Abdominal mass: Mass noted left abdomen, concerned this might be renal origin. Microscopic hematuria noted on urinalysis CT abdomen pelvis with contrast today. After this is done he could potentially be discharged, with close follow-up regarding mass with appropriate specialist if no other concerning findings are noted on CT Plan Thank you for this consultation Attestations Medical Necessity Statement*: As per primary Diagnoses Chest pain R07.9 Abdominal mass R19.00 Time Spent (min) 21
--- NOTE | 2023-03-29 10:27 | P.DS_ITS ---
Discharge Providers Date of Admission: 03/28/23 09:30 Date of Discharge: March 29, 2023 Attending Provider at Admission: Brown Mallory M.D Attending Provider at Discharge: Brown Mallory M.D Consults: Dr Michele Primary Care Provider: Tasha Rowe APN Diagnoses at Discharge Discharge Diagnosis (1) Chest pain: Status: Inactive (2) Abdominal mass: Status: Acute Reason for Visit Reason for Visit: Chest Pressure, pain in Neck and left arm Brief History: 57-year-old man with no significant prior cardiac history presented to hospital with chest pain and night sweats. EKG showed dynamic ST-T wave changes with transient ST elevations. Given his presentation decision was made to emergently take him to the cardiac [employer]. Hospital Course Hospital Course Coronary angiogram did not reveal significant stenosis. LV systolic function was normal on echo. Medicine team was consulted for further evaluation of his symptoms. CTA of the chest was obtained that was unremarkable however did it showed incidental finding of left upper abdominal soft tissue mass which was of significant size. We then obtained a CT scan of her abdomen and pelvis with contrast. It showed a heterogeneous and lobulated left renal mass consistent in appearance with renal cell carcinoma. Enlarged periaortic lymph nodes were also seen. Possible involvement of left adrenal gland was also noted. His chest pain was consistent with coronary vasospasms. He was put on calcium channel piedad. Medicine team arranged follow up with urology in [place]. Patient was discharged home in a stable condition. Physical Exam Narrative: GENERAL: Patient is alert, awake and oriented x3. [] NECK: No jugular vein distension. [] HEENT: No cyanosis. No icterus. No pallor. [] HEART: Regular S1 and S2. No murmur, rub or gallop. [] LUNGS: Clear to auscultate bilaterally. [] CENTRAL NERVOUS SYSTEM: Grossly nonfocal. [] EXTREMITIES: Lower extremities with no edema bilaterally. Discharge Data Studies Completed and Pending Completed Studies During Hospitalization Category Date Time Status CT abdomen pelvis w con* [id number] Routine Cat Scan 03/29/23 07:23 Completed CTA chest [CT angio chest PE protcl [id number]] Routine Cat Scan 03/28/23 13:25 Completed XR chest 1V portable [id number] Stat Exams 03/28/23 06:37 Completed CV. 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 No acute cardiopulmonary finding. Abdomen/Pelvis CT 03/29/23 07:23 IMPRESSION: There is heterogeneous and lobulated left renal mass with the appearance consistent with renal cell neoplasm. There are associated enlarged lymph nodes including of the left para-aortic space and likely involvement of the adrenal gland on the left. There is overall renal arterial and venous contrast luminal enhancement demonstrated. Some small-vessel proximal renal level involvement could also present in this fashion as there is some central extension as well as of the renal pelvis calyceal junction. Laboratory Results WBC 9.8 10^3/uL (4.0-10.0) 03/29/23 03:41 RBC 4.33 10^6/uL (4.1-5.3) 03/29/23 03:41 Hgb 12.1 g/dL (11.7-16.6) 03/29/23 03:41 Hct 37.9 % (42.0-52.0) L 03/29/23 03:41 MCV 87.5 fl (80-94) 03/29/23 03:41 MCH 27.9 pg (28.0-34.0) L 03/29/23 03:41 MCHC 31.9 g/dL (30.0-36.0) 03/29/23 03:41 RDW 14.8 % (12.1-15.1) 03/29/23 03:41 Plt Count 282 10^3/cmm (130-400) 03/29/23 03:41 MPV 9.3 fL (7.4-10.4) 03/29/23 03:41 Neut % (Auto) 77.1 % 03/29/23 03:41 Lymph % (Auto) 13.7 % 03/29/23 03:41 [place] % (Auto) 8.1 % 03/29/23 03:41 Eos % (Auto) 0.7 % 03/29/23 03:41 Baso % (Auto) 0.2 % 03/29/23 03:41 Neut # (Auto) 7.57 10^3/uL (1.8-7.7) 03/29/23 03:41 Lymph # (Auto) 1.4 10^3/uL (0.8-4.8) 03/29/23 03:41 [place] # (Auto) 0.8 10^3/uL (0.2-0.9) 03/29/23 03:41 Eos # (Auto) 0.1 10^3/uL (0.0-0.8) 03/29/23 03:41 Baso # (Auto) 0.0 10^3/uL (0.0-0.1) 03/29/23 03:41 Nucleated RBC % (auto) 0 % 03/29/23 03:41 Nucleated RBCs # 0.0 /100WBC 03/29/23 03:41 APTT 31.1 SECONDS (23.9-36.7) 03/28/23 11:55 D-Dimer 0.42 ug/mIFEU (0-0.59) 03/28/23 06:51 Sodium 137 mmol/L (136-145) 03/29/23 03:41 Potassium 4.2 mmol/L (3.5-5.1) 03/29/23 03:41 Chloride 102 mmol/L (98-107) 03/29/23 03:41 Carbon Dioxide 25 mmol/L (22-29) 03/29/23 03:41 Anion Gap 14.2 (5-19) 03/29/23 03:41 BUN 9 mg/dL (6-20) 03/29/23 03:41 Creatinine 0.9 mg/dL (0.7-1.2) 03/29/23 03:41 GFR Calculation 87.0 mL/min (90-130) L 03/29/23 03:41 Glucose 121 mg/dL (65-115) H 03/29/23 03:41 Calculated Osmolality 284 mOsm/kg (285-295) L 03/29/23 03:41 Calcium 8.6 mg/dL (8.5-10.5) 03/29/23 03:41 Magnesium 2.2 mg/dL (1.7-2.3) 03/28/23 06:51 Total Bilirubin 0.4 mg/dL (0.15-1.2) 03/28/23 06:51 AST 14 U/L (0-40) 03/28/23 06:51 ALT 18 U/L (0-41) 03/28/23 06:51 Alkaline Phosphatase 110 U/L (40-130) 03/28/23 06:51 Troponin T Baseline 7 ng/L (0-15) 03/28/23 06:51 Troponin T Hi Sens 6Hr 11.60 ng/L (0-15) 03/28/23 11:55 Troponin T Hi Sens 6Hr Delta 4.60 ng/L (0-12) 03/28/23 11:55 Total Protein 7.5 g/dL (6.6-8.7) 03/28/23 06:51 Albumin 4.2 g/dL (3.5-5.2) 03/28/23 06:51 Globulin 3.3 g/dL (1.3-4.6) 03/28/23 06:51 TSH 2.05 uIU/mL (0.27-4.20) 03/28/23 06:51 Urine Color Yellow (Yellow) 03/28/23 16:14 Urine Appearance Sl cloudy (CLEAR) A 03/28/23 16:14 Urine pH 7 (5-7) 03/28/23 16:14 Ur Specific [place] 1.005 (1.005-1.030) 03/28/23 16:14 Urine Protein 1+ (Negative) H 03/28/23 16:14 Urine Glucose (UA) Norm (Normal) 03/28/23 16:14 Urine Ketones Negative (Negative) 03/28/23 16:14 Urine Blood 3+ (Negative) H 03/28/23 16:14 Urine Nitrate Negative (Negative) 03/28/23 16:14 Urine Bilirubin Neg (Negative) 03/28/23 16:14 Urine Urobilinogen Norm mg/dL (Negative) 03/28/23 16:14 Ur Leukocyte Esterase Negative (Negative) 03/28/23 16:14 Urine RBC >100 /hpf (0-2) H 03/28/23 16:14 Urine WBC 5-10 /hpf (0-5) H 03/28/23 16:14 Ur Squamous Epith Cells 0-4 /hpf (0-5) H 03/28/23 16:14 Amorphous Sediment Not Reportable 03/28/23 16:14 Urine Bacteria Tr /hpf (NONE) 03/28/23 16:14 Coronavirus 229E (PCR) Not detected (NOT DETECT) 03/28/23 16:41 SARS-CoV-2 (PCR) Not detected (NOT DETECT) 03/28/23 16:41 Vitals Last Vital Signs Temp 98.0 F 03/28/23 16:18 Pulse 80 03/29/23 06:00 Resp 18 03/29/23 06:00 BP 126/68 03/29/23 06:00 Pulse Ox 97 03/29/23 06:00 O2 Del Method Room Air 03/28/23 10:01 Discharge Plan Discharge Patient Disposition: Home Condition: Stable Prescriptions: New pantoprazole 40 mg Tablet,Delayed Release (Dr/Ec) 40 mg PO BID Qty: 60 0RF amlodipine 5 mg Tablet 2.5 mg PO DAILY Qty: 90 3RF Continued multivitamin Tablet 1 tab PO DAILY aspirin 81 mg Tablet,Delayed Release (Dr/Ec) 81 mg PO DAILY Vitamin D3 25 mcg (1,000 unit) Capsule 25 mcg PO DAILY loratadine 10 mg Capsule 10 mg PO DAILY Discontinued esomeprazole magnesium [Nexium] 20 mg Capsule,Delayed Release(Dr/Ec) 20 mg PO DAILY Discharge Orders: Discharge Order (Routine); Ordered 03/29/23 Ordered By: Brown Mallory Referrals: Brown Mallory M.D [Physician] - 3 months (DOUBLE BOTTOM DRIVER Nurse to schedule this follow up for cardiology after visit) Micki Mac FNP [Nurse Practitioner] - 4-7 days (appointment date and time: March at time of 3:15 pm wound check /lab after angiogram /heart attack/post hospital follow up) Rufino Rivera DO [Staff Physician] - (family to call and confirm appointment with /new patient status) Discharge Diet: Cardiac Discharge Activity: Increase activity as tolerated Patient Instructions: Amlodipine (By mouth) (Hypertenipine-2.5, Norvasc, Norliqva), Pantoprazole (By mouth), Heart Attack (DC), Heart Healthy Diet (DC), Chest Pain Stoplight, Opioid Safety, Post Angiogram Home Care Instructions, Post Heart Attack Stoplight Activity Restrictions/Additional Instructions: Encourage fluids. You were referred to [facility] for the mass in your left kidney. They are looking at your records and scheduling an apppointment for you. If you have not heard from them by Saturday, please call to check on status at [phone]. Discharge Attestations Time Spent in Discharge Care*: greater than 30 min Quality Metrics Clinical Quality Measures [ No reported AMI, CVA or VTE this stay] Coding Level of Care Code Acute Code for Chg Fwd Diagnoses Chest pain R07.9 Abdominal mass R19.00
--- NOTE | 2023-03-29 12:40 | PC.NURSE ---
Patient discharged to home. Patient signature forms signed, prescriptions sent to [facility], [facility], [facility], and upcoming appointment education provided to patient. Patient signature form sign. IVs removed.
== END 2023-03-29 12:40 | disposition home or self-care (01) ==
LOC: ER 08:26 → CCL 08:35 → ICU 10:00
PROVIDERS: Internal Medicine; Admitting Provider Internal Medicine; Emergency Provider Emergency Medicine; PCP Nurse Practitioner Family; Visit Provider Internal Medicine
DX: I20.1 Angina pectoris with documented spasm (principal); K21.9 Gastro-esophageal reflux disease without esophagitis; N28.89 Other specified disorders of kidney and ureter; R31.29 Other microscopic hematuria; Z79.82 Long term (current) use of aspirin
CPT/HCPCS: 36415; 71045; 71275; 74177; 80048; 80053; 81001; 83735; 84443; 84484; 85025; 85347; 85378; 85730; 87086; 87635; 93005; 93306; 93458; 96361; 96365; 96374; 96376; 99152; 99153; 99285; C1769; C1887; C1894; G0378; J1644; J2250; J3010; J3490; J7030; Q9967

== ENCOUNTER → 2023-04-02 16:27 | Outpatient (BNVA) | payer BC, SELFPAY | PROVIDERS: PCP Family Medicine; Visit Provider Nurse Practitioner Family | DX: I20.1 Angina pectoris with documented spasm (principal) | CPT/HCPCS: 36415; 80048 ==

== ENCOUNTER → 2023-06-06 13:28 | Outpatient (BNVA) | payer BC, SELFPAY | PROVIDERS: PCP Family Medicine; Visit Provider Family Medicine | DX: N28.9 Disorder of kidney and ureter, unspecified (principal); R60.9 Edema, unspecified; Z90.5 Acquired absence of kidney; E83.52 Hypercalcemia | CPT/HCPCS: 80053; 81003; 82043; 82306; 85025 ==